=== PATIENT | female | born 1985 | race Caucasian/White ===

== ENCOUNTER 2017-05-22 11:44 | Inpatient (IN) ==
[2017-05-22 12:29] LABS: Amphetamine Screen,Urine Negative ng/mL (Cutoff=1000); Barbiturate Screen,Urine Negative ng/mL (Cutoff=200); Benzodiazepines Screen,Urine Negative ng/mL (Cutoff=200); Cannabinoid Screen,Urine Negative ng/mL (Cutoff = 50); Cocaine Screen,Urine Negative ng/mL (Cutoff= 300); Opiate Screen,Urine Negative ng/mL (Cutoff=300); Phencyclidine Screen,Urine Negative ng/mL (Cutoff=25)
[2017-05-22] MEDS ORDERED: FLUARIX QUAD 2017-18 36MOS UP/PF 0.5 ML SYRINGE IM ONE (13:06)
--- NOTE | 2017-05-22 13:31 | OB/GYN History & Physical ---
Date of Encounter: 05/22/17 Time of Encounter: 13:26 Assessment and Plan (1) 37 weeks gestation of Current visit: Yes Status: Acute Admitted for observation for labor evaluation. (2) Previous section Current visit: Yes Status: Acute Monitor for labor (3) Non-stress test reactive Current visit: Yes Status: Acute Reactive NST. FHR 130 bpm, moderate varability, + 15x15 accels, no decels. Category I tracing. History of Present Illness Chief complaint: Complaint of ctx starting at 0600, 37.5 wks previous , ate @ 1000 HPI: Ms. Santoro is a 31 year old female at 37.5 weeks gestation arrived with complaints of contractions that began at 0600 this morning, becoming more frequent throughout the morning. Patient rates her pain with ctx a 2 out of 10. Patient reports + movement, denies LOF and vaginal bleeding. Patient is a scheduled repeat for 06/01/[address] Hatfield. Blood type O+, Rubella Immune, HbSAG NR, GBS negative. Pt reports eating breakfast at 0600 and had saltine crackers at 1000. Past Med Surg Social Fam HX - Past Medical History Source: patient Medical history: no medical history Psychiatric history: no psych history - Past Surgical History Surgical History: (December 2015), ureteral stent (with last ), other (Pyloric stenosis surgery as a child.) - Social History Smoking Status: Never smoker Smokeless Tobacco Status: No Alcohol use: none Drug use: none Occupational status: employed Current living situation: Home - Independent Activity Level: Independent ambulation Recent Out of Country Travel Within the Last 8 Weeks: No Exposure or Possible Exposure to Illness During Travel: No - Family History Mother Adopted: No Living Status: Still Living Hx Family Cardiac Disorders: No Hx Family Respiratory Disorders: No Hx Family Cancer: No Hx Family GI Disorders: No Hx Family Genitourinary Disorders: No Hx Family Endocrine Disorder: No Hx Family Musculoskeletal Disorders: No Hx Family Neuromuscular Disorders: No Hx Family Neurologic Disorders: No Hx Family HEENT Disorders: No Hx Family Autoimmune Disorders: No Hx Family Reproductive Disorders: No Hx Family Psychosocial Disorders: No Hx Family Medical Disorders: No Obstetrical History - Pregnancies : 4 Para: 2 Term: 1 : 1 Ab's: 1 Livin - History/Complications History/Complications: 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 Medications and Allergies Pedi Mv No.79/Ferrous Fumarate [Flintstones with Iron Tab Chew] 1 tab PO DAILY 01/19/16 [History] Folic Acid 1 / PO DAILY 05/22/17 [History] 3 Allergy/AdvReac Type Severity Reaction Status Date / Time No Known Allergies Allergy Verified 01/19/16 11:05 Review of System OB All systems PM: reviewed and no additional remarkable complaints except as stated - Constitutional Constitutional ROS IM: no fever(s), no headache(s) - Cardiovascular Cardiovascular: no chest pain, no dyspnea Exam - Constitutional Constitutional: well developed, well nourished, no acute distress - HEENT HEENT: Mucus Membranes Moist - Neck Neck exam: full ROM - Lungs Respiratory exam: CTAB - Cardiovascular Cardiovascular exam: RRR, +S1, +S2 - Breasts Breast: bilateral: normal - Abdomen Abdomen: Present: bowel sounds normal, gravid - Extremities Extremities exam: normal capillary refill, normal inspection - Cervix Dilation: 3 (per RN) Effacement: 50 Station: -3 - Uterus Uterus exam: Present: normal size - Comments Comments: FHR 130 bpm, moderate variability, + 15x15 accels, Category I tracing. Ctx q2-3 minutes, pain rating a 2 out of 10. Results All other labs normal. - VTE Reasons for not Prescribing Prophylaxis: Treatment not Indicated - Low risk for VTE
[2017-05-22] MEDS ORDERED: Famotidine 20 MG/2 ML VIAL IVP ONE (13:57)
[2017-05-22] MEDS ORDERED: CeFAZolin Pre 2,000 MG/100 ML 2,000 MG/100 ML BAG IVPB ONE (13:57)
[2017-05-22] MEDS ORDERED: Metoclopramide 10 MG/2 ML VIAL IVP ONE (13:57)
[2017-05-22] MEDS ORDERED: Oxytocin 20 units/ LR 1000 mL 20 UNIT/1,000 ML BAG IVC ONE (13:57)
[2017-05-22] MEDS ORDERED: Ringers Solution, Lactated 1,000 ML ONE ×3 (13:58→17:54)
[2017-05-22] MEDS ORDERED: Ringers Solution, Lactated 1,000 ML IVC SCH ×2 (14:00→19:00)
--- NOTE | 2017-05-22 14:12 | Anesthesia Evaluation PreOp ---
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: Denies Any Significant HX Other Medical History: Denies Any Significant HX, Other (heartburn during ) Anesthesia History: No Prior Anesthetic Complications, Past Anesthesia (pyloric stenosis repair at 6 weeks old, ureteral stents) : Yes (, 37 weeks) Alcohol Use: none Drug use: none Medications and Allergies Pedi Mv No.79/Ferrous Fumarate [Flintstones with Iron Tab Chew] 1 tab PO DAILY 01/19/16 [History] Folic Acid 1 / PO DAILY 05/22/17 [History] 3 Allergy/AdvReac Type Severity Reaction Status Date / Time No Known Allergies Allergy Verified 01/19/16 11:05 - Meds/Allergy Pre-op Review Medications Reviewed: Yes Allergies Reviewed: Yes Beta Blockers on Current Med List: No Anesthesia Exam O2 Sat Height 1.68 m Weight 76.1 kg bp 130/87 Height: 66 Weight: 76 NPO (# of Hours): 1000 saltine crackers - HEENT Pupil (Motor): Pupils equal Mallampati: II Teeth: Normal Oral Opening: Greater than 3 - DIRECTOR UTIL[employer]NAGEMENT LOC: Oriented DIRECTOR [employer]NAGEMENT Motor: Normal RUE, Normal LUE, Normal RLE, Normal LLE, Normal Face [employer]NAGEMENT Sensory: Normal: RUE, LUE, RLE, LLE, Face - Cardiac Rhythm: Regular Murmur: None JVD: No Carotid Bruit: No - Pulmonary Breath Sounds: bilateral Clear Respiratory Effort: Symmetrical Anesthesia Assess/Plan ASA Score: 2 Modified Maryann Scale for Level of Consciousness: Cooperative, oriented, and tranquil Anesthetic Plan: Regional Monitoring Plan: Standard Monitors
[2017-05-22 14:48] LABS: Hematocrit 34.9 % (35.3-44.9); Hemoglobin 11.8 g/dL (11.5-15.4); Immature Granulocytes % 0.7 % (0-4); Mean Corpuscular HGB Conc 33.8 g/dL (31.6-35.5); Mean Corpuscular Hemoglobin 28.9 pg (28.0-33.3); Mean Corpuscular Volume 85.5 fL (83.0-100.0); Mean Platelet Volume 11.6 fL (9.4-12.4); Platelet Count 259 K/mcL (140-400); Red Blood Count 4.08 M/mcL (3.82-4.97); Red Cell Distribution Width 13.3 % (11.5-14.5); Segmented Neutrophils % 82.8 %
[2017-05-22 14:49] LABS: Basophils % 0.3 %; Eosinophils # 0.1 K/mcL (0.0-0.6); Eosinophils % 0.4 %; Lymphocytes # 1.7 K/mcL (0.6-4.6); Lymphocytes % 11.7 %; Monocytes # 0.6 K/mcL (0.0-1.3); Monocytes % 4.1 %; Neutrophils # 11.8 K/mcL (1.6-8.9)
[2017-05-22] MEDS ORDERED: *HR* Morphine Sulfate/PF 5 MG/10 ML AMPUL ONE (16:31)
[2017-05-22] MEDS ORDERED: *HR* FentaNYL (PF) 100 MCG/2 ML VIAL ONE (16:31)
[2017-05-22] MEDS ORDERED: *HR* Phenylephrine 10 MG/ML VIAL ONE (16:32)
[2017-05-22] MEDS ORDERED: *HR* Oxytocin 10 UNIT/ML VIAL IM ONE ×2 (16:33→17:54)
[2017-05-22] MEDS ORDERED: Ondansetron 4 MG/2 ML VIAL IVP ONE (17:08)
[2017-05-22] MEDS ORDERED: *HR* Promethazine 25 MG/ML VIAL IVP PRN (17:08)
[2017-05-22] MEDS ORDERED: *HR* HYDROmorphone (PF) 1 MG/ML SYRINGE IVP PRN (17:08)
[2017-05-22] MEDS ORDERED: Ondansetron 4 MG/2 ML VIAL ONE (17:45)
--- NOTE | 2017-05-22 18:30 | OB/GYN Procedure Note ---
Section - Date of procedure: 05/22/17 Preop diagnosis: desires repeat , desires sterilization Post-op diagnosis: same Procedure: repeat low transverse, bilateral tubal ligation Surgeon: Sarah Kiser Estimated blood loss (cc): 400 Anesthesia Type: Spinal section complications: none Disposition: L&D Recovery Room Specimens: Placenta, Cord blood ( ) - Narrative Narrative: Patient was brought to the operating room with satisfactory spinal anesthesia. The abdomen was prepped and draped in a sterile fashion. A Pfannenstiel incision was made and carried sharply down to the level of fascia. The fascia was incised transversely. The fascia was dissected away from the underlying rectus muscles. With sharp and blunt dissection, rectus muscles were divided in midline. The perineum was entered bluntly. A transverse incision was made across the bladder peritoneum. The bladder was dissected away from the underlying lower uterine segment. Bladder retractor was placed to protect the bladder. The lower uterine segment was entered sharply with a scalpel. Incision was manually extended. Clear amniotic fluid was encountered. The 's head was pulled up and delivered easily as were the shoulders and body. The mouth and oropharynx were suctioned. The cord was clamped and cut. The infant was passed off to the waiting criminal lawyer in satisfactory condition. APGARS 8/9, weight 2620g. Placenta was extracted completely and found to be intact. Uterus was explored and found to be empty. Uterus was delivered through the abdominal incision and massaged vigorously. Intravenous Pitocin was administered. The margins of the uterine incision, were closed primarily with a running locking stitch of 0 Vicryl with adequate hemostasis. Secondary running locking stitch was placed for extra strength to the wound. At this point, attention was diverted to the patient's tubes, a Mahendra clamp grasped the isthmic portion of each tube and approximately 1-cm knuckle on either side was tied off with two lengths of 0 plain catgut. Intervening knuckle was excised and passed off the field. The proximal end of the tubal mucosa was cauterized. Cul-de-sac and gutters were suctioned vigorously. The uterus was returned to its proper anatomic position in the abdomen. The fascia was closed with a simple running stitch of 0 vicryl. The subcutaneous tissue was closed with 3-0 vicryl. The skin was closed with running subcuticular of 4-0 vicryl. Uterus was expressed of its contents. Patient was brought to the recovery room in satisfactory condition. There were no complications. There was 400 cc of blood loss. All sponge, needle, and instrument counts were reported to be correct.
[2017-05-22] MEDS ORDERED: *HR* OxyCODONE/APAP 5/325 TABLET PO PRN (18:55)
[2017-05-22] MEDS ORDERED: Metoclopramide 10 MG/2 ML VIAL IVP PRN (18:55)
[2017-05-22] MEDS ORDERED: Simethicone 80 MG TAB.CHEW PO PRN (18:55)
[2017-05-22] MEDS ORDERED: Ondansetron 4 MG/2 ML VIAL IVP PRN (18:55)
[2017-05-22] MEDS ORDERED: Oxytocin 20 units/ LR 1000 mL 20 UNIT/1,000 ML BAG IVC SCH (19:00)
[2017-05-22] MEDS: Ibuprofen 600 MG TABLET PO PRN (20:09)
[2017-05-22] MEDS ORDERED: *HR* Morphine 2 MG/ML SYRINGE IVP PRN (20:47)
--- NOTE | 2017-05-22 20:47 | Anesthesia Evaluation Post Op ---
Date of Encounter: 05/22/17 Time of Encounter: 20:46 - Vital Signs Vital Signs: Vital Signs/O2 Sat, Most Current Temp Pulse Resp BP Pulse Ox 97.6 F 85 16 122/91 97 05/22/17 20:38 05/22/17 20:38 05/22/17 20:38 05/22/17 20:38 05/22/17 20:38 - Lungs Lungs: Clear Ascult./Percussion - Airway Airway: Non-obstructed - Cardiovascular Regular Rate - Mental Status Mental Status: Alert & Oriented, Answers Appropriately - Pain Pain Scale: 0 - Nausea Vomiting Nausea Vomiting: Not Present - Hydration Hydration: NPO, Subramanian catheter - Discharge PostOp Status: Transfer Patient to floor
[2017-05-22] MEDS ORDERED: Sennosides 8.6 MG TABLET PO PRN (21:00)
[2017-05-23] MEDS: Ibuprofen 600 MG TABLET PO PRN ×3 (06:53→20:30)
[2017-05-23 08:21] LABS: Basophils % 0.3 %; Eosinophils # 0.1 K/mcL (0.0-0.6); Eosinophils % 0.6 %; Hematocrit 28.9 % (35.3-44.9); Immature Granulocytes % 0.5 % (0-4); Lymphocytes # 1.2 K/mcL (0.6-4.6); Lymphocytes % 8.3 %; Mean Corpuscular HGB Conc 33.2 g/dL (31.6-35.5); Mean Corpuscular Hemoglobin 28.8 pg (28.0-33.3); Mean Corpuscular Volume 86.8 fL (83.0-100.0); Mean Platelet Volume 11.5 fL (9.4-12.4); Monocytes % 7.1 %; Neutrophils # 12.3 K/mcL (1.6-8.9); Platelet Count 199 K/mcL (140-400); Red Blood Count 3.33 M/mcL (3.82-4.97); Red Cell Distribution Width 13.2 % (11.5-14.5); Segmented Neutrophils % 83.2 %
[2017-05-23] MEDS: Prenatal Vit/FA 1 EACH TABLET PO SCH (08:44)
[2017-05-23 08:55] LABS: Hemoglobin 9.6 g/dL (11.5-15.4)
[2017-05-23] MEDS ORDERED: *HR* HYDROcodone/Acet 5/325 mg TABLET PO PRN (15:22)
[2017-05-24] MEDS: Ibuprofen 600 MG TABLET PO PRN ×2 (02:36→09:46)
[2017-05-24 07:44] VITALS: BP 123/82
--- NOTE | 2017-05-24 08:39 | Discharge Summary ---
Date of Encounter: 05/24/17 - Discharge Medications Home Medications: Pedi Mv No.79/Ferrous Fumarate [Flintstones with Iron Tab Chew] 1 tab PO DAILY 01/19/16 [History] Folic Acid 1 / PO DAILY 05/22/17 [History] Allergies/Adverse Reactions: 3 Allergy/AdvReac Type Severity Reaction Status Date / Time No Known Allergies Allergy Verified 01/19/16 11:05 Data Procedures and tests throughout hospitalization: Laboratory Tests 05/22/17 05/22/17 05/23/17 12:10 14:18 07:27 WBC 14.2 H 14.7 H RBC 4.08 3.33 L Hgb 11.8 9.6 L D Hct 34.9 L 28.9 L MCV 85.5 86.8 MCH 28.9 28.8 MCHC 33.8 33.2 RDW 13.3 13.2 Plt Count 259 199 MPV 11.6 11.5 Immature Gran % 0.7 0.5 Seg Neutrophils % 82.8 83.2 Lymphocytes % 11.7 8.3 Monocytes % 4.1 7.1 Eosinophils % 0.4 0.6 Basophils % 0.3 0.3 Neutrophils # 11.8 H 12.3 H Lymphocytes # 1.7 1.2 Monocytes # 0.6 1.0 Eosinophils # 0.1 0.1 Basophils # 0.0 0.0 Urine Opiates Screen Negative Ur Barbiturates Screen Negative Ur Phencyclidine Scrn Negative Ur Amphetamines Screen Negative U Benzodiazepines Scrn Negative Urine Cocaine Screen Negative U Marijuana (THC) Screen Negative Labs on day of discharge: Labs from last 24 hours 05/23/17 07:27 WBC 14.7 H RBC 3.33 L Hgb 9.6 L D Hct 28.9 L MCV 86.8 MCH 28.8 MCHC 33.2 RDW 13.2 Plt Count 199 MPV 11.5 Immature Gran % 0.5 Seg Neutrophils % 83.2 Lymphocytes % 8.3 Monocytes % 7.1 Eosinophils % 0.6 Basophils % 0.3 Neutrophils # 12.3 H Lymphocytes # 1.2 Monocytes # 1.0 Eosinophils # 0.1 Basophils # 0.0 Date of admission: 05/22/17 13:57 Primary care physician: Mary Yoon CNP - Discharge Instructions Follow Up With: Mary Yoon CNP [Primary Care Provider] - Hospital Course [employer] Time Attestation: Total time spent providing and/or coordinating discharge services: Exam - Constitutional Vitals: Temp Pulse Resp BP Pulse Ox 97.9 F 87 12 123/82 97 05/24/17 07:43 05/24/17 07:43 05/24/17 07:43 05/24/17 07:43 05/24/17 07:43 General appearance IM: A&O X 3, no acute distress - Respiratory Respiratory exam: Present: CTAB. Absent: respiratory distress, rhonchi, wheezes , tachypnea - Cardiovascular Cardiovascular exam IM: Present: RRR, +S1, +S2. Absent: diastolic murmur, systolic murmur - GI/Abdominal GI/Abdominal exam IM: normal bowel sounds, soft Incision: normal, dry, intact, dressed - Extremities Exam Extremities exam IM: Present: normal inspection. Absent: pedal edema Additional comments: pedal pulses intact bilaterally - VTE Reasons for not Prescribing Prophylaxis: Treatment not Indicated - Low risk for VTE Documentation of Mechanical Device: Intermittent pneumatic compression device
--- NOTE | 2017-05-24 08:48 | Discharge Summary ---
Date of Encounter: 05/24/17 Time of Encounter: 08:15 - Discharge Diagnosis (1) Status post Priority: Primary Status: Acute Comments: Patient is meeting post- milestones. Edit: Eliseo Jose CNM postop day 2 Pain is well controlled VSS Lochia light and without clots is going well Incision C/D/I Follow up in office in 2 weeks for incision check Contraception not discussed due to patient also having tubal during C/S. POC per consult with Dr Hatfield. (2) anemia Priority: Secondary Status: Acute Comments: Patent received supplemental iron and will be discharged with iron supplement as well. - Discharge Medications Prescriptions: HYDROcodone/Acet 5/325 mg [[place] 5-325 mg] 1 tab PO Q6HR PRN #20 tablet PRN Reason: Moderate Pain Ibuprofen [Motrin] 600 mg PO Q6HR PRN #60 tablet PRN Reason: Cramping Breast Pump [BREAST PUMP] 1 each .ROUTE AD #1 each Docusate [Colace] 100 mg PO BID #30 capsule Ferrous Sulfate 325 mg PO DAILY #30 tablet Home Medications: Breast Pump [BREAST PUMP] 1 each .ROUTE AD #1 each 05/24/17 [Rx] Docusate [Colace] 100 mg PO BID #30 capsule 05/24/17 [Rx] Ferrous Sulfate 325 mg PO DAILY #30 tablet 05/24/17 [Rx] HYDROcodone/Acet 5/325 mg [[place] 5-325 mg] 1 tab PO Q6HR PRN #20 tablet [Rx] Ibuprofen [Motrin] 600 mg PO Q6HR PRN #60 tablet 05/24/17 [Rx] Allergies/Adverse Reactions: 3 Allergy/AdvReac Type Severity Reaction Status Date / Time No Known Allergies Allergy Verified 01/19/16 11:05 Data Procedures and tests throughout hospitalization: Laboratory Tests 05/22/17 05/22/17 05/23/17 12:10 14:18 07:27 WBC 14.2 H 14.7 H RBC 4.08 3.33 L Hgb 11.8 9.6 L D Hct 34.9 L 28.9 L MCV 85.5 86.8 MCH 28.9 28.8 MCHC 33.8 33.2 RDW 13.3 13.2 Plt Count 259 199 MPV 11.6 11.5 Immature Gran % 0.7 0.5 Seg Neutrophils % 82.8 83.2 Lymphocytes % 11.7 8.3 Monocytes % 4.1 7.1 Eosinophils % 0.4 0.6 Basophils % 0.3 0.3 Neutrophils # 11.8 H 12.3 H Lymphocytes # 1.7 1.2 Monocytes # 0.6 1.0 Eosinophils # 0.1 0.1 Basophils # 0.0 0.0 Urine Opiates Screen Negative Ur Barbiturates Screen Negative Ur Phencyclidine Scrn Negative Ur Amphetamines Screen Negative U Benzodiazepines Scrn Negative Urine Cocaine Screen Negative U Marijuana (THC) Screen Negative Labs on day of discharge: Labs from last 24 hours 05/23/17 07:27 WBC 14.7 H RBC 3.33 L Hgb 9.6 L D Hct 28.9 L MCV 86.8 MCH 28.8 MCHC 33.2 RDW 13.2 Plt Count 199 MPV 11.5 Immature Gran % 0.5 Seg Neutrophils % 83.2 Lymphocytes % 8.3 Monocytes % 7.1 Eosinophils % 0.6 Basophils % 0.3 Neutrophils # 12.3 H Lymphocytes # 1.2 Monocytes # 1.0 Eosinophils # 0.1 Basophils # 0.0 Date of admission: 05/22/17 13:57 Primary care physician: Mary Yoon CNP Discharging clinician: Dean Hobson Anticipated date of discharge: 05/24/17 - Patient Status Disposition: Home, Self-Care Condition: Good Functional capacity at discharge: independent ambulation Overall status at discharge: patient is progressing back to baseline - Discharge Instructions Instructions: Hydrocodone/Acetaminophen (By mouth), Ibuprofen (By mouth), Docusate (Rectal) Follow Up With: Mary Yoon CNP [Primary Care Provider] - Sarah Kiser MD [Partnered Physician] - Avelina Hatfield MD [Partnered Physician] - - Diet and Activity Activity: resume usual activities as tolerated Diet: advance to your usual diet Hospital Course Reason for admission: observation Delivery: section Discharge diagnosis: IUP at term delivered [place] baby: female Hospital course: Ms. Santoro is a 31 year old female at 37.5 weeks gestation arrived with complaints of contractions that began in the morning. Patient reported + movement, denied LOF and vaginal bleeding. Blood type O+, Rubella Immune, HbSAG NR, GBS negative. Patient had performed with a transverse incision. was successfully delivered with APGARS 8/9, weight 2620g. When seen today , patient was complaining of minor abdominal cramping which is worst when she is nursing. She has minor vaginal bleeding that is improving. She denies any fever, chills, nausea, vomiting, and swelling. OARRS report checked. Time Attestation: Total time spent providing and/or coordinating discharge services: Time Spent: Greater than 30 minutes - VTE Reasons for not Prescribing Prophylaxis: Treatment not Indicated - Low risk for VTE Documentation of Mechanical Device: Intermittent pneumatic compression device Exam - Constitutional Vitals: Temp Pulse Resp BP Pulse Ox 97.9 F 87 12 123/82 97 05/24/17 07:43 05/24/17 07:43 05/24/17 07:43 05/24/17 07:43 05/24/17 07:43 General appearance IM: A&O X 3 - Respiratory Respiratory exam: Present: CTAB. Absent: respiratory distress, rhonchi, wheezes , tachypnea - Cardiovascular Cardiovascular exam IM: Present: RRR, +S1, +S2. Absent: diastolic murmur, systolic murmur - GI/Abdominal GI/Abdominal exam IM: normal bowel sounds, soft Incision: normal, dry, intact, dressed - Uterine Tone: Firm Uterus Position: 1 Finger Below Umbilicus, Midline - Extremities Exam Extremities exam IM: Absent: pedal edema Additional comments: Pedal pulses intact bilaterally. - Neurological Exam Neurological exam: alert, oriented X3
[2017-05-24] MEDS ORDERED: FLUARIX QUAD 2017-18 36MOS UP/PF 0.5 ML SYRINGE IM ONE (09:00)
[2017-05-24] MEDS: Prenatal Vit/FA 1 EACH TABLET PO SCH (09:46)
== END 2017-05-24 13:10 | disposition home or self-care (01) | DRG 766 ==
LOC: 1NENULAB → OBSVTOIN 11:44 → INTOOBSV 11:44 → 1NENUOBS 20:36
PROVIDERS: ADMIT Student in an Organized Health Care Education/Training Program; ATTEND Student in an Organized Health Care Education/Training Program